=== PATIENT | female | born 1995 | race Caucasian/White ===

== ENCOUNTER 2019-04-25 06:58 | Day surgery (SDC) | payer OTHER ==
[2019-04-25] MEDS: CEFAZOLIN 2 GM/50 ML (PMX) 50 ML IVPB (07:00)
[2019-04-25] MEDS: LACTATED RINGER'S 1,000 ML IV (08:30)
[2019-04-25 08:59] LABS: ADD MAN DIFF? NO; BASOPHIL # 0.1 10^3/ul (0.0-0.1); BASOPHILS % 0.5 % (0.0-2.0); EOSINOPHILS # 0.3 10^3/ul (0.0-0.5); EOSINOPHILS % 2.8 % (0.0-7.0); HEMATOCRIT 41.7 % (37.0-47.0); HEMOGLOBIN 13.6 g/dl (12.0-16.0); LYMPHOCYTES # 2.6 10^3/ul (0.8-2.9); LYMPHOCYTES % 22.8 % (15.0-51.0); MEAN CORPUSCULAR HEMOGLOBIN 30.2 pg (29.0-33.0); MEAN CORPUSCULAR HGB CONC 32.6 g/dl (32.0-37.0); MEAN CORPUSCULAR VOLUME 92.7 fl (82.0-101.0); MONOCYTE # 0.8 10^3/ul (0.3-0.9); MONOCYTES % 7.2 % (0.0-11.0); NEUTROPHIL # 7.7 10^3/ul (1.6-7.5); NEUTROPHILS % 66.2 % (39.0-77.0); PLATELET COUNT 329 10^3/UL (140-415); RED CELL DISTRIBUTION WIDTH 12.4 % (11.5-14.5)
[2019-04-25 08:59] LABS: WHITE BLOOD COUNT 11.6 10^3/ul (4.8-10.8)
[2019-04-25] MEDS ORDERED: LABETALOL HCL 20MG INJ IV (09:00)
[2019-04-25] MEDS ORDERED: MEPERIDINE 25 MG INJ IV (09:00)
[2019-04-25] MEDS ORDERED: DIPHENHYDRAMINE 50 MG INJ IV (09:00)
[2019-04-25] MEDS ORDERED: IPRATROPIUM (NEB) 0.5 MG/2.5 ML AMP HHN (09:00)
[2019-04-25] MEDS ORDERED: OXYCODONE/ACETAMINOPHEN (5/325) TAB PO (09:00)
[2019-04-25] MEDS ORDERED: TRIMETHOBENZAMIDE 100 MG/ML VIAL IM (09:00)
[2019-04-25] MEDS ORDERED: hydrALAzine 20 MG INJ IV (09:00)
[2019-04-25] MEDS ORDERED: EPHEDrine 25 MG/5 ML SYG IV (09:00)
[2019-04-25] MEDS ORDERED: ONDANSETRON 4 MG INJ IV (09:00)
[2019-04-25] MEDS ORDERED: FENTAnyl 50 MCG/ML VIAL IV ×2 (09:00)
[2019-04-25] MEDS ORDERED: ALBUTEROL 0.083% (NEB) 2.5 MG/3 ML AMP HHN (09:00)
[2019-04-25] MEDS ORDERED: MIDAZOLAM 1 MG/ML 2 ML INJ IV (09:00)
[2019-04-25] MEDS ORDERED: HYDROmorphONE 1 MG/5 ML IV SYRINGE IV ×3 (09:00)
[2019-04-25] MEDS ORDERED: PROPOFOL 20 ML (09:04)
[2019-04-25] MEDS ORDERED: NEOSTIGMINE 3 MG/3 ML SYRINGE (09:04)
[2019-04-25] MEDS ORDERED: GLYCOPYRROLATE 0.4 MG INJ (09:04)
[2019-04-25] MEDS ORDERED: CEFAZOLIN 1 GM INJ (09:04)
[2019-04-25] MEDS ORDERED: ROCURONIUM 50 MG INJ (09:04)
[2019-04-25] MEDS ORDERED: FENTAnyl 50 MCG/ML VIAL (09:05)
[2019-04-25] MEDS ORDERED: ONDANSETRON 4 MG INJ (09:05)
[2019-04-25] MEDS ORDERED: MIDAZOLAM 1 MG/ML 2 ML INJ (09:05)
[2019-04-25] MEDS ORDERED: DEXAMETHASONE 4 MG/ML 5 ML INJ (09:05)
[2019-04-25 09:15] LABS: INR 0.93; PROTIME 12.6 Sec (11.9-14.9)
[2019-04-25 09:16] LABS: PARTIAL THROMBOPLASTIN TIME 27.7 Sec (23.0-35.0)
[2019-04-25 09:22] LABS: ADD UMIC YES; UR ASCORBIC ACID NEGATIVE (NEGATIVE); UR BACTERIA FEW /HPF (NONE SEEN); UR BILIRUBIN (Dip) NEGATIVE (NEGATIVE); UR BLOOD (Dip) 1+ mg/dL (NEGATIVE); UR CLARITY CLOUDY (CLEAR); UR COLOR YELLOW (YELLOW); UR GLUCOSE (Dip) NEGATIVE (NEGATIVE); UR KETONES (Dip) NEGATIVE (NEGATIVE); UR LEUKOCYTE ESTERASE (Dip) 1+ Leu/ul (NEGATIVE); UR MUCUS FEW /HPF (NONE SEEN); UR NITRITE (Dip) NEGATIVE (NEGATIVE); UR RBC 16 /HPF (0-5); UR SQUAMOUS EPITHELIAL CELL MODERATE /HPF (FEW); UR TOTAL PROTEIN (Dip) NEGATIVE (NEGATIVE); UR UROBILINOGEN (Dip) NEGATIVE (NEGATIVE); UR WBC 11 /HPF (0-5)
[2019-04-25] MEDS ORDERED: FERRIC SUBSULFATE 8 GM VIAL TOP (10:09)
[2019-04-25] MEDS ORDERED: SUGAMMADEX SODIUM 200 MG/2 ML VIAL IV (10:15)
[2019-04-25] MEDS: FENTAnyl 50 MCG/ML VIAL IV ×2 (10:36→10:43)
[2019-04-25] MEDS: ACETIC ACID 0.25% IRR 1,000 ML BTL IRR (10:46)
[2019-04-25] MEDS: OXYCODONE/ACETAMINOPHEN (5/325) TAB PO (11:10)
== END 2019-04-25 12:24 | disposition home or self-care (01) ==
LOC: SDS 06:58
DX: R87.619 Unspecified abnormal cytological findings in specimens from cervix uteri (principal); E66.01 Morbid (severe) obesity due to excess calories; Z68.42 Body mass index [BMI] 45.0-49.9, adult
CPT/HCPCS: 57455; 81001; 84703; 85025; 85610; 85730; 88305